=== PATIENT | male | born 1965 | race Caucasian/White ===

== ENCOUNTER 2016-11-29 18:34 | Emergency (ER) | payer BC ==
[~2016-11-29] VITALS: Ht 182.9 cm; Wt 122.7 kg
[2016-11-29] MEDS ORDERED: FAMOTIDINE 20 MG/2 ML VIAL IVP ONE (19:00)
[2016-11-29] MEDS ORDERED: IV NORMAL SALINE 1,000ML 1,000 ML IV SCH (19:00)
[2016-11-29] MEDS ORDERED: ONDANSETRON PF 4 MG/2 ML VIAL. IV ONE (19:00)
[2016-11-29] MEDS ORDERED: PROMETHAZINE 25 MG in IV NORMAL SALINE 50ML 50 ML IV PRN (19:00)
--- NOTE | 2016-11-29 19:00 | PHYS DOC ---
General Chief Complaint: NAUSEA/VOMITING/DIARRHEA Stated Complaint: NAUSEA/VOMITING Time Seen by MD: 18:47 Source: patient Exam Limitations: no limitations Problems: History of Present Illness Initial Comments Pt is 51/M to ED c/o n/v. Pt states yesterday 1800 felt sick to his stomach, had generalized abdominal discomfort. Began vomitting at midnight, states he's had PO intolerance with intermittent n/v since then. Last emesis about 3 hours ago, pt states that is when he stopped trying to hydrate with water. No cp/sob/albrecht/focal weakness, no fever/chills/cough/focal abdominal pain complaints. Last BM yesterday described as normal, no bloating/distension +flatus. No prearrival treatment, pt is visiting locally staying in [facility]. No bad food exposure or known sick contacts with similar sx. Timing/Duration: 24 hours Severity: moderate Modifying Factors: worse with eating, improves with medication Associated Symptoms: malaise, nausea/vomiting Allergies: Coded Allergies: Penicillins (Verified Allergy, Unknown, 11/29/16) Past Medical History Medical History: no pertinent history Surgical History: noncontributory Social History Smoker: non-smoker Alcohol: none Drugs: none Review of Systems Constitutional: denies chills, denies diaphoresis, denies fever, malaise Respiratory: denies cough, denies shortness of breath Cardiovascular: denies chest pain, denies palpitations Gastrointestinal: see HPI Genitourinary: denies dysuria, denies frequency, denies hematuria Musculoskeletal: denies back pain, denies joint swelling, denies neck pain Psychiatric/Neurological: denies headache, denies numbness, denies paresthesia Physical Exam General Appearance: WD/WN, no apparent distress Eyes: bilateral eye EOMI, bilateral eye PERRL, bilateral eye normal inspection Ear, Nose, Throat: hearing grossly normal, normal ENT inspection, normal pharynx Neck: non-tender, supple Respiratory: normal breath sounds, no respiratory distress Cardiovascular: normal peripheral pulses, regular rate, rhythm Gastrointestinal: soft (ND, diffuse mild TTP no r/g/mass, neg mcburn/lemus) Rectal: deferred Back: no CVA tenderness, no vertebral tenderness Extremities: non-tender, normal inspection Neurologic/Psychiatric: teacher adult education II-XII nml as tested, no motor/sensory deficits, alert, normal mood/affect, oriented x 3 Skin: normal color, warm/dry Orders, Labs, Meds EKG: NSR 81 bpm, PVC, no definite acute ischemic changes no STEMI AAS: no acute cardiopulm process, nonobstructive ileus gas pattern Labs reassuring WBC 11.5 2031: Pt resting, no n/v feels much better. Keeping down PO fluids, requesting d/c. He expressed agreement/understanding with treatment plan. Departure Time of Disposition: 20:32 Disposition: HOME, SELF-CARE Diagnosis: gastroenteritis, hypovolemia Condition: IMPROVED Patient Instructions: Dehydration, Adult, [id number], Viral Gastroenteritis, [id number] Additional Instructions: Rest, no strenuous activity. Work excuse thru 12/01. Aggressive hydration with gatorade, water. Clear liquids, advance to bland diet as tolerated. Rx: zofran odt, dicyclomine, take as directed. OTC tylenol/ibuprofen as needed. Follow up with your doctor in 3-5 days if not better. Return to ED with new or changing symptoms. SHADI AZAR DO Nov 29, 2016 19:00
--- NOTE | 2016-11-29 19:16 | EKG ---
[address] [address] Test Date: 2016-11-29 Test Time: 19:12:07 Pat Name: ROLY DUNLAP Department: Room: Gender: M Television Production Technician: : 1965 Requested By: SHADI AZAR Order Number: [id number] Reading MD: Measurements Intervals [place] Rate: 81 P: 39 IA: 162 QRS: 24 QRSD: 72 T: 31 QT: 358 QTc: 416 Interpretive Statements SINUS RHYTHM VENTRICULAR PREMATURE COMPLEX(ES) ABNORMAL ECG RI6.01 Unconfirmed report No previous ECG available for comparison
[2016-11-29 19:37] LABS: BASO % 0 % (0-3); EOS % 0 % (0-3); HEMATOCRIT 46.3 % (39.0-53.0); HEMOGLOBIN 15.3 g/dL (13.0-17.5); LYMPH # 0.9 x10^3/uL (1.0-4.8); LYMPH % 8 % (24-48); MEAN CORPUSCULAR HEMOGLOBIN 28 pg (25-35); MEAN CORPUSCULAR HGB CONC 33 g/dL (31-37); MEAN CORPUSCULAR VOLUME 85 fL (79-100); MONO # 0.9 x10^3/uL (0.0-1.1); MONO % 8 % (0-9); NEUT # 9.6 x10^3uL (1.8-7.7); NEUT % 83 % (31-73); PLATELET COUNT 310 x10^3/uL (140-400); RED BLOOD COUNT 5.47 x10^6/uL (4.30-5.70); WHITE BLOOD COUNT 11.5 x10^3/uL (4.0-11.0)
[2016-11-29 19:56] LABS: ALBUMIN 3.9 g/dL (3.4-5.0); ALBUMIN/GLOBULIN RATIO 0.9 (1.0-1.7); CALCIUM 9.2 mg/dL (8.5-10.1); CREATININE 1.3 mg/dL (0.7-1.3); GFR 58.4; POTASSIUM 3.7 mmol/L (3.5-5.1); TOTAL BILIRUBIN 0.5 mg/dL (0.2-1.0); TOTAL PROTEIN 8.1 g/dL (6.4-8.2)
[2016-11-29] MEDS ORDERED: ONDA4TAB10 PO (20:31)
[2016-11-29] MEDS ORDERED: DICY20TA3 PO (20:31)
[2016-11-29 21:44] VITALS: BP 131/79
--- NOTE | 2016-11-30 07:46 | RAD ---
Abdomen series with chest, 3 views, 11/29/2016: History: Nausea and vomiting There is mild gaseous distention of small bowel loops in the left midabdomen. There are scattered air-fluid levels. Only a small amount of colonic gas is seen. No free air is evident in the abdomen. There is no evidence of organomegaly. Lower pelvic calcifications are probably phleboliths. Mild degenerative changes are evident in the spine. The heart size and pulmonary vascularity are normal. There is minimal linear atelectasis in the lung bases. There is no evidence of pleural fluid. IMPRESSION: Mild gaseous distention of small bowel loops with scattered air-fluid level suggesting small bowel obstruction versus an ileus.
== END 2016-11-29 22:00 | disposition home or self-care (01) ==
LOC: ER 18:34
DX: K52.9 Noninfective gastroenteritis and colitis, unspecified (principal); E86.1 Hypovolemia; Z88.0 Allergy status to penicillin
CPT/HCPCS: 36415; 74022; 80053; 82550; 83690; 84484; 85027; 93005; 96361; 96374; 96375; 99285; J2405; S0028; J7030